=== PATIENT | female | born 1990 | race Caucasian/White ===

== ENCOUNTER 2017-01-03 00:53 | Inpatient (IN) | payer MEDICAID, OTHER ==
[2017-01-03] MEDS ORDERED: Sodium Chloride 0.9% 1,000 ML IV ONE ×2 (01:25→03:30)
[2017-01-03] MEDS ORDERED: Morphine 4 MG/ML VIAL IV STA (01:25)
--- NOTE | 2017-01-03 01:26 | C.PDOC ---
History Of Present Illness Patient present to the ER with a complaint of right leg, ankle pain. Patient states she slipped on the stairs and landed on her right leg. Denies any other trauma . No Loc.. remembers the event. Right Foot is externally rotated. - HPI Time Seen by Provider: 01/03/17 01:24 Chief Complaint (Nursing): Trauma History Per: Patient History/Exam Limitations: no limitations Onset/Duration Of Symptoms: Hrs Injury Occurred (Timing): Hours Ago: (1) Location Of Injury: Right: Ankle, Leg (lower third) Severity: Moderate Pain Scale Rating Of: 5 Recent travel outside of the [place]: No Additional History Per: Family - Fall Fall:Prior To Injury: Slipped (on stairway), Lost Balance Past Medical History Reviewed: Historical Data, Nursing Documentation, Vital Signs Vital Signs: Last Vital Signs Temp 98.4 F 01/03/17 00:59 Pulse 91 H 01/03/17 00:59 Resp 20 01/03/17 00:59 BP 121/81 01/03/17 00:59 Pulse Ox 100 01/03/17 02:22 Family History: States: No Known Family Hx - Social History Hx Alcohol Use: Yes (weekends) Hx Substance Use: No - Immunization History Hx Tetanus Toxoid Vaccination: Yes Hx Influenza Vaccination: No Hx Pneumococcal Vaccination: No Review Of Systems Constitutional: Negative for: Fever, Chills Cardiovascular: Negative for: Chest Pain Musculoskeletal: Positive for: Leg Pain (right ankle pain) Skin: Negative for: Rash, Lesions, Jaundice Neurological: Negative for: Weakness Psych: Negative for: Anxiety Physical Exam - Physical Exam Appears: Well, Non-toxic Skin: Warm, Dry Head: Atraumatic, Normacephalic Oral Mucosa: Moist Neck: Supple Cardiovascular: Rhythm Regular Respiratory: No Rales, No Rhonchi, No Wheezing Gastrointestinal/Abdominal: Soft, No Tenderness Back: Normal Inspection Extremity: Tenderness, No Pedal Edema, No Calf Tenderness, Capillary Refill ( Good ), Deformity (foot externally rotated, mid tibia pain), Other (right ankle pain) Extremity: Right: Bony Point Tenderness (mid tibia), Unable To Bear Weight Pulses: Right Femoral: Normal, Right Dorsalis Pedis: Normal Neurological/Psych: Oriented x3, Normal Speech, Normal Cognition Gait: Unable To Assess ED Course And Treatment - Laboratory Results Result Diagrams: 01/03/17 01:33 01/03/17 01:33 O2 Sat by Pulse Oximetry: 100 Pulse Ox Interpretation: Normal Progress Note: Blood work, urinalysis, HCG qualitative urine test, ankle x-ray, and lower left leg x-ray ordered. Morphine, IV fluids, and zofran Inj administered. I've reduced and splinted her right leg. pt tolerated the procedure well. good pulses and capillary refill Disposition Discussed With Dr.: Brooke Kinney Comment: accepted the pt on his service and took over the care at 3:30 AM Doctor Will See Patient In The: Hospital Counseled Patient/Family Regarding: Studies Performed, Diagnosis - Disposition Disposition: HOSPITALIZED Disposition Time: 01:25 Condition: FAIR - POA Present On Arrival: None - Clinical Impression Clinical Impression: Tibia/fibula fracture, shaft - Scribe Statement The provider has reviewed the documentation as recorded by the Scribe Alvarado Dhillon All medical record entries made by the Scribe were at my direction and personally dictated by me. I have reviewed the chart and agree that the record accurately reflects my personal performance of the history, physical exam, medical decision making, and the department course for this patient. I have also personally directed, reviewed, and agree with the discharge instructions and disposition. Decision To Admit - Pt Status Changed To: Hospital Disposition Of: Inpatient - Admit Certification Admit to Inpatient:: After my assessment, the patient will require hospitalization for at least two midnights. This is because of the severity of symptoms shown, intensity of services needed, and/or the medical risk in this patient being treated as an outpatient. - InPatient: Physician Admission Certification: I certify that this patient requires 2 or more midnights of care for the following reason:: After my assessment, the patient will require hospitalization for at least two midnights. This is because of the severity of symptoms shown, intensity of services needed, and/or the medical risk in this patient being treated as an outpatient. - . Bed Request Type: Regular Admitting Physician: Brooke Kinney Patient Diagnosis: Tibia/fibula fracture, shaft
[2017-01-03] MEDS ORDERED: Morphine 4 MG/ML VIAL ONE (01:34)
[2017-01-03] MEDS ORDERED: Sodium Chloride 0.9% 1,000 ML ONE ×2 (01:34→03:25)
[2017-01-03 01:39] LABS: BASO # 0.1 K/uL (0.0-0.2); BASO % 0.8 % (0.0-2.0); EOS # 0.3 K/uL (0.0-0.7); EOS % 2.5 % (0.0-4.0); HEMATOCRIT 42.6 % (34.0-47.0); LYMPH # 3.9 K/uL (1.0-4.3); LYMPH % 29.3 % (20.0-40.0); MEAN CELL VOLUME 87.6 fL (81.0-99.0); MEAN CORPUSCULAR HEMOGLOBIN 29.3 pg (27.0-31.0); MEAN CORPUSCULAR HGB CONC 33.5 g/dL (33.0-37.0); MEAN PLATELET VOLUME 9.1 fL (7.2-11.7); MONO # 0.7 K/uL (0.0-0.8); MONO % 5.3 % (0.0-10.0); RED CELL DISTRIBUTION WIDTH 14.1 % (11.5-14.5); WHITE BLOOD COUNT 13.2 K/uL (4.8-10.8)
[2017-01-03 01:50] LABS: CHLORIDE 97 mmol/L (98-107); POTASSIUM 3.3 mmol/L (3.6-5.2); SODIUM 135 mmol/L (132-148)
[2017-01-03 01:53] LABS: BLOOD UREA NITROGEN 8 mg/dL (7-17); CARBON DIOXIDE 23 mmol/L (22-30); GFR AFRICAN-AMERICAN > 60; GLUCOSE,RANDOM 179 mg/dL (65-105)
[2017-01-03 01:54] LABS: CALCIUM 8.7 mg/dl (8.6-10.4)
[2017-01-03] MEDS ORDERED: HYDROmorphone 1 mg/ml ISec ONE ×2 (03:24→04:24)
[2017-01-03] MEDS ORDERED: HYDROmorphone 1 mg/ml ISec IVP STA ×2 (03:30→03:46)
[2017-01-03 05:22] LABS: RBC URINE 4 /hpf (0-3); URINE BILIRUBIN NEGATIVE (NEGATIVE); URINE BLOOD NEGATIVE (NEGATIVE); URINE COLOR Yellow (YELLOW); URINE GLUCOSE (UA) NORMAL (Normal); URINE KETONE 1+ mg/dL (NEGATIVE); URINE LEUKOCYTE ESTERASE TRACE Leu/uL (Negative); URINE PROTEIN NEGATIVE (NEGATIVE); URINE UROBILINOGEN NORMAL mg/dL (0.2-1.0); WBC URINE 12 /hpf (0-5)
--- NOTE | 2017-01-03 08:13 | RAD ---
PROCEDURE: CHEST RADIOGRAPH, 1 VIEW HISTORY: fall COMPARISON: None available. FINDINGS: LUNGS: Clear. PLEURA: No pneumothorax or pleural fluid seen. CARDIOVASCULAR: Normal. OSSEOUS STRUCTURES: No significant abnormalities. VISUALIZED UPPER ABDOMEN: Normal. OTHER FINDINGS: Nipple pierced jewelry pieces - placed IMPRESSION: No active disease.
--- NOTE | 2017-01-03 08:16 | RAD ---
PROCEDURE: Radiographs of the right tibia and fibula. HISTORY: fall COMPARISON: None available. TECHNIQUE: Frontal and lateral views obtained. FINDINGS: BONES: Prox fibular shaft completed fracture -butterfly fracture fragment slightly displaced towards tibia ; minimal anterior apical angulation and butterfly fragment inferior tip posteriorly pointing Distal tibial shaft complete spiral fracture the proximal fracture fragment medially displaced ; an anterior displaced small fracture fragment JOINT SPACES: Unremarkable. OTHER FINDINGS: None. IMPRESSION: Tibial and fibular fractures
[2017-01-03] MEDS: HYDROmorphone 0.5 mg/0.5 ml ISec IVP PRN ×4 (09:26→21:16)
[2017-01-03] MEDS: Sodium Chloride 0.9% 1,000 ML IV SCH ×2 (09:31→23:06)
[2017-01-03] MEDS ORDERED: Potassium Chloride 20 mEq ER Tab PO ONE (10:00)
--- NOTE | 2017-01-03 11:04 | CP.PCM.HP ---
History of Present Illness - History of Present Illness History of Present Illness: 26F complains of right leg pain after fall on stairs in her apartment building yesterday. Pain was severe 10/10 and she was unable to walk after fall. She denies any CP/SOB/dizziness preceding fall. She denies LOC or head injury or headache. Denies numbness/tingling. No prior falls. PMH: denies PSH: denies NKDA smokes 7-8 cigs/day, smoking cessation advised, hurts bone/wound healing explained Present on Admission - Present on Admission Any Indicators Present on Admission: No Review of Systems - Review of Systems All systems: reviewed and no additional remarkable complaints except - Constitutional Constitutional: As Per HPI - EENT Additional comments: denies neck pain or headache - Cardiovascular Cardiovascular: As Per HPI - Respiratory Respiratory: As Per HPI - Gastrointestinal Additional comments: no nausea/vomiting - Musculoskeletal Musculoskeletal: As Per HPI - Integumentary Integumentary: As Per HPI - Neurological Neurological: As Per HPI - Hematologic/Lymphatic Hematologic: absent: Easy Bleeding, Easy Bruising, Lymphadenopathy, Other Past Patient History - Infectious Disease Hx of Infectious Diseases: None - Past Medical History & Family History Past Medical History?: No Past Family History: Reviewed and not pertinent - Past Social History Smoking Status: Light Smoker < 10 Cigarettes Daily - MUSCULOSKELETAL/RHEUMATOLOGICAL Hx Falls: Yes (01/03/2017 past midnight) - PSYCHIATRIC Hx Substance Use: No - SURGICAL HISTORY Hx Surgeries: No - ANESTHESIA Hx Anesthesia: No Hx Anesthesia Reactions: No Meds Allergies/Adverse Reactions: Allergies Allergy/AdvReac Type Severity Reaction Status Date / Time No Known Allergies Allergy Verified 01/03/17 01:05 Physical Exam - Constitutional Appears: Well, In Acute Distress Additional comments: mild pain - Head Exam Head Exam: ATRAUMATIC, NORMAL INSPECTION - Eye Exam Eye Exam: EOMI, Normal appearance - ENT Exam ENT Exam: Mucous Membranes Moist - Neck Exam Neck exam: Positive for: Normal Inspection Additional comments: non tender - Respiratory Exam Respiratory Exam: NORMAL BREATHING PATTERN - Cardiovascular Exam Additional comments: +DP pulse - Extremities Exam Additional comments: splint intact toes warm sensation intact left calf soft NT neg homans cap refill < 2 sec - Expanded Lower Extremities Exam Right Hip exam: full ROM Neuro vacular tendon exam: no vascular compromise - Back Exam Back exam: NORMAL INSPECTION - Neurological Exam Neurological exam: Alert, Oriented x3 - Psychiatric Exam Psychiatric exam: Normal Affect, Normal Mood - Skin Skin Exam: Dry, Intact, Normal Color, Warm Results - Vital Signs Recent Vital Signs: Last Vital Signs Temp 98.9 F 01/03/17 07:40 Pulse 93 H 01/03/17 07:40 Resp 20 01/03/17 07:40 BP 114/80 01/03/17 07:40 Pulse Ox 97 01/03/17 07:40 - Labs Result Diagrams: 01/03/17 01:33 01/03/17 01:33 Labs: Laboratory Results - last 24 hr 01/03/17 05:05 Urine Color Yellow Urine Clarity Hazy Urine pH 5.0 Ur Specific Hallam 1.023 Urine Protein Negative Urine Glucose (UA) Normal Urine Ketones 1+ H Urine Blood Negative Urine Nitrate Negative Urine Bilirubin Negative Urine Urobilinogen Normal Ur Leukocyte Esterase Trace Urine WBC (Auto) 12 H Urine RBC (Auto) 4 H Ur Squamous Epith Cells 4 Urine HCG, Qual Negative - Impressions Impression: Patient Name / ID : BERNADINE MATOS / [id number] Exam Date : 01/03/2017 02:05:00 ( Approved ) Study Comment : Sex / Age : F / 26Y Creator : Evonne Phan V. Dictator : Evonne Phan V. Medical Psychotherapist : Yardage Control Operator Forming : Evonne Phan V. Approver2 : Report Date : 01/03/2017 08:15:01 My Comment : PROCEDURE: Radiographs of the right tibia and fibula. HISTORY: fall COMPARISON: None available. TECHNIQUE: Frontal and lateral views obtained. FINDINGS: BONES: Prox fibular shaft completed fracture -butterfly fracture fragment slightly displaced towards tibia ; minimal anterior apical angulation and butterfly fragment inferior tip posteriorly pointing Distal tibial shaft complete spiral fracture the proximal fracture fragment medially displaced ; an anterior displaced small fracture fragment JOINT SPACES: Unremarkable. OTHER FINDINGS: None. IMPRESSION: Tibial and fibular fractures Accession No. : [id number] Patient Name / ID : BERNADINE MATOS / [id number] Exam Date : 01/03/2017 02:16:25 ( Approved ) Study Comment : Sex / Age : F / 26Y Creator : Evonne Phan V. Dictator : Evonne Phan V. Medical Psychotherapist : Yardage Control Operator Forming : Evonne Phan V. Approver2 : Report Date : 01/03/2017 08:12:07 My Comment : PROCEDURE: CHEST RADIOGRAPH, 1 VIEW HISTORY: fall COMPARISON: None available. FINDINGS: LUNGS: Clear. PLEURA: No pneumothorax or pleural fluid seen. CARDIOVASCULAR: Normal. OSSEOUS STRUCTURES: No significant abnormalities. VISUALIZED UPPER ABDOMEN: Normal. OTHER FINDINGS: Nipple pierced jewelry pieces - placed IMPRESSION: No active disease. Assessment & Plan (1) Closed fracture of shaft of right tibia and fibula Status: Acute Comment: for ORIF/IM nailing today. labs reviewed. imaging reviewed, midshaft right tibial fracture. NPO. T&S. d/w Dr. Brad Vieira, for OR today. elevation. ice. NWB. smoking cessation advised
[2017-01-03] MEDS ORDERED: Propofol 10 mg/ml Inj (20 ML) ONE (11:51)
[2017-01-03] MEDS ORDERED: Midazolam 2 MG/2 ML VIAL ONE (11:51)
[2017-01-03] MEDS ORDERED: Bupivacaine HCl 0.5% PF (10 ml) Inj ONE (12:13)
[2017-01-03] MEDS ORDERED: Lidocaine 1% Inj (20ml) ONE (12:14)
[2017-01-03] MEDS ORDERED: ceFAZolin IV 2 gm in Dextrose 50 ML IVPB ONE (12:14)
[2017-01-03] MEDS ORDERED: Neostigmine Methylsulfate 3mg/3ml Syringe IV ONE (14:36)
[2017-01-03] MEDS ORDERED: Bupivacaine HCl 0.25% PF (10 ml) Inj ONE ×2 (16:03)
--- NOTE | 2017-01-03 16:15 | PCM.SURG1 ---
Surgeon's Initial Post Op Note - Surgeon's Notes Surgeon: Ruth Vieira MD Teachers' Aide: Conchita Macario PA-C Type of Anesthesia: General Endo Anesthesia Administered By: Dr. Scott Pre-Operative Diagnosis: Right tibia/fibular shaft fx Operative Findings: synthes implant Post-Operative Diagnosis: same Operation Performed: Right tibial intramedullary nailing Specimen/Specimens Removed: none Estimated Blood Loss: EBL {In ML}: 100 Drains Used: No Drains Post-Op Condition: Fair Date of Surgery/Procedure: 01/03/17 Time of Surgery/Procedure: 16:14
--- NOTE | 2017-01-03 16:41 | OP ---
PROCEDURE DATE: 01/03/2017 SURGEON: Brad Vieira M.D. LIQUOR RECTIFIER: Joe Macario PA-C. PREOPERATIVE DIAGNOSIS: Displaced right tibial shaft and fibular shaft fracture. POSTOPERATIVE DIAGNOSIS: Displaced right tibial shaft and fibular shaft fracture. PROCEDURE: Right tibial shaft reduction and intramedullary nail fixation using Synthes tibial nail (9 mm nail). ANESTHESIA: General plus postoperative lower extremity block. SPECIMENS: None. COMPLICATIONS: None. ESTIMATED BLOOD LOSS: 100 mL. DISPOSITION: Stable to recovery room. INDICATIONS: This is a 26-year-old female who sustained a twisting injury at home, landing on her right lower extremity. She presented with deformity of her lower extremity and pain and swelling with inability to bear weight. Initial x-rays confirmed a displaced tibial and fibular shaft fracture. Risks and benefits of the procedure were explained to the patient and her . The risks include, but not limited to bleeding, infection, tendon, nerve or vessel injury, instability, chronic pain, potential need for additional surgery in the future, malunion, nonunion, malrotation. The patient understood the above risks and elected to undergo the procedure. Informed consent was obtained. DESCRIPTION OF PROCEDURE: The patient was brought to the operating room and placed supine on the operating room table. Prophylactic antibiotics were given. A nonsterile right thigh tourniquet was placed. The right lower extremity was then prepped and draped in standard surgical fashion. A timeout was performed. An incision was outlined over the anterior knee measuring about 5-6 cm for the entry point of the nail. Then, under fluoroscopic guidance, a closed reduction was performed over the tibia with traction and internal rotation. The reduction was held in place provisionally with percutaneous reduction clamps. Next, an incision was made over the anterior knee. Flaps were developed down to the paratenon. The paratenon was opened sharply. Then, the joint was entered medial to the patellar tendon. Starting wire was placed into the anterior knee. Starting point was midline over the tibial crest and confirmed both on AP and lateral films. After this, an opening reamer was used to open the proximal canal of the tibia. This was then followed by placement of a ball tip guidewire into the tibia, across the tibial fracture site, down to the distal tibia. This was again confirmed with fluoroscopy. Then, sequential reaming was begun starting with an 8 mm reamer and sequentially going up to a 10 mm reamer in the tibial medullary canal. After reaming the medullary canal, an appropriate length tibial nail was selected. This was a 320 x 9 mm nail. Nail was assembled on the backtable with aiming guides placed proximally. Then with light taps, the nail was seated into the tibial canal across the fracture site. Reduction was aligned both to length and anatomic rotation. Ball tip guidewire was then removed. Work was begun on locking the nail proximally. With trocars placed in lateral to medial direction over the proximal tibia, incision was made through the skin. Hemostat was used to bluntly dissect down to the lateral cortex of the tibia. Then, a drill was used to drill, the proximal hole bicortically. Then, appropriate length screw was selected and placed in the proximal static hole, locking the nail proximally. This was then repeated by a second proximal screw placement with the same technique. Again, an appropriate size screw was selected and placed across the bone and nail locking it proximally. Work was then begun on locking the nail distally. This was done with perfect lumbee technique. Distal locking hole with anterior to posterior screws was selected. Under fluoroscopy, drill was placed in an anterior to posterior direction through the bone and tibial nail. Appropriate length screw was selected and placed into the distal tibial hole. Then, another drill hole was placed in a medial to lateral position. Again, appropriate length screw was selected and then placed in the hole, locking the nail distally. Final x-rays again confirmed the well-aligned and anatomic reduction and good rotational position of the tibia. Hardware was of appropriate length. The wounds were copiously irrigated and closed with 0 followed by 2-0 Vicryl and Monocryl suture for the proximal knee wound and the rest of the wounds were closed with 2 -0 Vicryl and alesia. The patient tolerated the procedure well, was extubated and returned to recovery room where she would undergo a lower extremity block. Joe is a certified physician specimen preparation assistant who assisted me throughout the whole case. Her help was needed for proper patient positioning, protection of critical neurovascular bundles, reduction of the fracture and closure of the wound. Brad Vieira M.D. cc: [id number] TT: 01/03/2017 16:40:19 tn MTDD
--- NOTE | 2017-01-03 16:46 | RAD ---
PROCEDURE: Right tibia and fibula HISTORY: pt in PACU s/p IM nailing COMPARISON: Earlier same day TECHNIQUE: Three views FINDINGS: There is an intra medullary milena in the tibia. There is normal alignment. There is also a fracture of the proximal fibula with slight separation of a bony fragment. This is unchanged. IMPRESSION: Internal fixation tibial fracture
--- NOTE | 2017-01-03 18:55 | PCM.ANESB2 ---
Popliteal Nerve Block - Popliteal Nerve Block Date of Procedure: 01/03/17 Anesthesiologist: shemar christy Procedure Performed: Popliteal Nerve Block Right - Procedure Popliteal Nerve Block: This procedure was explained to the patient that it is for post-operative pain management. Consent was obtained after a thorough discussion with the patient regarding the benefits and possible complications of local anesthetic block of the sciatic nerve at the popliteal level. The patient was brought to the operating room and standard monitors are applied. Time-out was held with the circulating nurse to confirm the correct surgery and the appropriate block. After applying oxygen by nasal cannula and administering IV Sedation, patient's operative leg was gently raised and supported and the groove in between the biceps femoris and vastus lateralis muscles was carefully palpated. The skin approximately 8cm above the popliteal crease was then marked. The ultrasound transducer was then applied to the posterior thigh approximately 8cm above the popliteal crease in the transverse plane and the sciatic nerve before its division was visualized lateral to the popliteal artery and in between the bicep femoris and semimembranosus/semitendinosus muscles. After identification, the lateral portion of the thigh was prepped with Betadine solution three times and Lidocaine 1% was injected subcutaneously for topical anesthesia. At this point, a # 21 gauge Stimuplex insulated 4 inch needle was inserted into pre-marked area and advanced in a perpendicular direction. The needle was inserted above the ultrasound transducer in-plane towards the sciatic nerve in a [id number] direction. Needle advancement was performed carefully under direct ultrasound visualization. After repeated negative aspiration, ____5_cc of _0.25_ % ___bupivicaine__was injected and this was flowed with 15_ cc of __0.25_ % ___bupivicaine__. Under ultrasound guidance the local anesthetics were observed tenting the epidural sheath and surrounding the roots of the sciatic nerve. The needle was removed intact and sterile dressing was applied. The patient tolerated the popliteal nerve block well with stable vital signs and no complaints, paresthesias, or pain.
[2017-01-03] MEDS: ceFAZolin IV 2 gm in Dextrose 50 ML IVPB SCH (18:56)
[2017-01-03] MEDS: Oxycodone/Acetaminophen 5/325 mg Tab PO PRN (23:30)
[2017-01-04] MEDS: ceFAZolin IV 2 gm in Dextrose 50 ML IVPB SCH (01:08)
[2017-01-04] MEDS: HYDROmorphone 0.5 mg/0.5 ml ISec IVP PRN ×4 (02:28→22:44)
[2017-01-04] MEDS: Sodium Chloride 0.9% 1,000 ML IV SCH (05:56)
[2017-01-04] MEDS: Oxycodone/Acetaminophen 5/325 mg Tab PO PRN ×3 (05:58→20:11)
[2017-01-04 06:13] LABS: HEMATOCRIT 35.9 % (34.0-47.0); MEAN CELL VOLUME 87.6 fL (81.0-99.0); MEAN CORPUSCULAR HEMOGLOBIN 29.4 pg (27.0-31.0); MEAN CORPUSCULAR HGB CONC 33.6 g/dL (33.0-37.0); MEAN PLATELET VOLUME 9.7 fL (7.2-11.7); RED CELL DISTRIBUTION WIDTH 13.8 % (11.5-14.5); WHITE BLOOD COUNT 9.6 K/uL (4.8-10.8)
[2017-01-04 06:20] LABS: CHLORIDE 100 mmol/L (98-107); POTASSIUM 3.6 mmol/L (3.6-5.2); SODIUM 136 mmol/L (132-148)
[2017-01-04 06:22] LABS: GFR AFRICAN-AMERICAN > 60
[2017-01-04 06:23] LABS: BLOOD UREA NITROGEN 5 mg/dL (7-17); CALCIUM 8.2 mg/dl (8.6-10.4); CARBON DIOXIDE 23 mmol/L (22-30); GLUCOSE,RANDOM 199 mg/dL (65-105)
[2017-01-04] MEDS: Aspirin 325 mg EC Tablets PO SCH ×2 (09:32→18:22)
--- NOTE | 2017-01-04 09:55 | CP.PCM.PN ---
Subjective - Date & Time of Evaluation Date of Evaluation: 01/04/17 Time of Evaluation: 09:49 - Subjective Subjective: Patient states pain has been controlled overnight, but now dilaudid isn't strong enough. Denies CP/SOB/dizziness. Denies numbnes//tingling. Urinating frequently. Good appetite, no nausea/vomiting Objective - Vital Signs/Intake and Output Vital Signs (last 24 hours): Temp Pulse Resp BP Pulse Ox 98.7 F 73 20 99/64 L 99 01/04/17 07:00 01/04/17 07:00 01/04/17 07:00 01/04/17 07:00 01/04/17 07:00 Intake and Output: 01/04/17 01/04/17 06:59 18:59 Intake Total 940 Output Total 500 Balance 440 - Medications Medications: Current Medications Acetaminophen (Tylenol 325mg Tab) 650 mg PO Q4 PRN PRN Reason: Fever 101 degrees fahrenheit Aspirin (Ecotrin) 325 mg PO BID FOR[facility]LY [facility], [facility]1983 Last Admin: 01/04/17 09:32 Dose: 325 mg Docusate Sodium (Colace) 100 mg PO BID [facility], [facility]1983 Last Admin: 01/04/17 09:32 Dose: 100 mg Hydromorphone HCl (Dilaudid) 0.5 mg IVP Q4H PRN PRN Reason: Pain, moderate (4-7) Last Admin: 01/04/17 09:44 Dose: 0.5 mg Sodium Chloride (Sodium Chloride 0.9%) 1,000 mls @ 80 mls/hr IV .[id number] FOR[facility], [facility]–1983 Last Admin: 01/04/17 05:56 Dose: 80 mls/hr Ondansetron HCl (Zofran Inj) 4 mg IVP Q6H PRN PRN Reason: Nausea/Vomiting Oxycodone/Acetaminophen (Percocet 5/325 Mg Tab) 2 tab PO Q4H PRN PRN Reason: Pain, Mild (1-3) Stop: 01/06/17 09:10 Last Admin: 01/04/17 05:58 Dose: 2 tab - Labs Labs: 01/04/17 06:02 01/04/17 06:02 PT 11.5 SECONDS (9.7-12.2) 01/03/17 01:33 INR 1.0 03/16/17 01:33 APTT 33 SECONDS (21-34) 01/03/17 01:33 - Constitutional Appears: Well, No Acute Distress - Extremities Exam Additional comments: sensation intact to SP/DP/sural/med/lat plantar toes pink warm cap refill < 2 sec - Neurological Exam Neuro motor strength exam: Right Lower Extremity: 5 (+flex/ext toes) Assessment and Plan (1) Closed fracture of shaft of right tibia and fibula Assessment & Plan: POD#1 s/p right tibia IM nailing -no evidence of compartment syndrome -VTE proph with aspiring per Dr. Vieira -PT/OT today -d/c planning home after patient clears PT, she has 3 flights of stairs to her home -elevate -ice -f/u PT progress -Dw/ Dr. Vieira, agrees with above -drop in h/h expected for tibia fracture Status: Acute Review of Systems - Review of Systems Constitutional: no symptoms reported Respiratory: No Resp. distress Cardiology: no symptoms reported, see HPI Gastrointestinal/Abdominal: no symptoms reported, see HPI Musculoskeletal: see HPI Skin: no symptoms reported Neurological: no symptoms reported, see HPI All Other Systems: Reviewed and Negative
--- NOTE | 2017-01-04 15:50 | RAD ---
PROCEDURE: Intraoperative Fluoroscopy. HISTORY: Right tibia and fibula fractures FINDINGS: Fluoroscopic assistance was provided for open reduction and internal fixation right tibial fracture. Proximal fibular fracture also noted.
[2017-01-05] MEDS: Oxycodone/Acetaminophen 5/325 mg Tab PO PRN ×5 (01:15→23:48)
[2017-01-05] MEDS: HYDROmorphone 0.5 mg/0.5 ml ISec IVP PRN ×4 (05:12→20:58)
[2017-01-05] MEDS: Aspirin 325 mg EC Tablets PO SCH ×2 (10:17→18:44)
[2017-01-06 00:16] VITALS: RESP 20
[2017-01-06] MEDS: HYDROmorphone 0.5 mg/0.5 ml ISec IVP PRN ×3 (04:11→17:20)
[2017-01-06] MEDS: Oxycodone/Acetaminophen 5/325 mg Tab PO PRN (06:46)
[2017-01-06] MEDS: Aspirin 325 mg EC Tablets PO SCH (09:45)
[2017-01-06] MEDS ORDERED: Oxycodone/Acetaminophen 5/325 mg Tab PO ONE (14:00)
[2017-01-06 17:40] VITALS: BP 116/84; PULSE 86; TEMP 98.4; O2SAT 99
== END 2017-01-06 17:51 | disposition home or self-care (01) | DRG 494 ==
LOC: C.ER 00:53 → C.6T 03:45
PROVIDERS: ADMIT Orthopaedic Surgery; ATTEND Orthopaedic Surgery
PROC: 0QSG06Z Reposition Right Tibia with Intramedullary Internal Fixation Device, Open Approach (ICD-10-PCS; principal; 2017-01-03 11:15)
DX: S82.291A Other fracture of shaft of right tibia, initial encounter for closed fracture (principal); F17.200 Nicotine dependence, unspecified, uncomplicated; S82.491A Other fracture of shaft of right fibula, initial encounter for closed fracture; W10.9XXA Fall (on) (from) unspecified stairs and steps, initial encounter; Y92.039 Unspecified place in apartment as the place of occurrence of the external cause

== ENCOUNTER 2017-01-31 13:57 | Emergency (ER) | payer MEDICAID, OTHER ==
[2017-01-31 14:01] VITALS: BP 125/79; PULSE 77; TEMP 98; O2SAT 99
[2017-01-31] MEDS ORDERED: Oxycodone/Acetaminophen 5/325 mg Tab PO STA (14:32)
[2017-01-31] MEDS ORDERED: Oxycodone/Acetaminophen 5/325 mg Tab ONE (14:37)
--- NOTE | 2017-01-31 14:48 | C.PDOC ---
History Of Present Illness 26 year old female with a Right tib/fib fracture on 01/02/17 and surgery on , presents to the ED to get an X-Ray. Patient notes having excess pain on the right leg and needs medication for pain. Patient denies vomiting, nausea, fever , chills, dizziness, numbness of the right leg, or any other complaints. (Manisha Mason) History Per: Patient History/Exam Limitations: no limitations Onset/Duration Of Symptoms: Days Current Symptoms Are (Timing): Still Present Severity: Mild Time Seen by Provider: 01/31/17 13:58 Chief Complaint (Nursing): Lower Extremity Problem/Injury Past Medical History Reviewed: Historical Data, Nursing Documentation, Vital Signs Family History: States: Unknown Family Hx - Social History Hx Alcohol Use: No Hx Substance Use: No - Immunization History Hx Tetanus Toxoid Vaccination: Yes Hx Influenza Vaccination: No Hx Pneumococcal Vaccination: No Vital Signs: Last Vital Signs Temp 98 F 01/31/17 13:59 Pulse 77 01/31/17 13:59 Resp 20 01/31/17 15:09 BP 125/79 01/31/17 13:59 Pulse Ox 99 01/31/17 16:22 - [facility] Procedures REPOSITION RIGHT TIBIA WITH INTRAMED FIX, OPEN APPROACH (01/03/17) Review Of Systems Except As Marked, All Systems Reviewed And Found Negative. Constitutional: Negative for: Fever, Chills Gastrointestinal: Negative for: Nausea, Vomiting Musculoskeletal: Positive for: Leg Pain (Right leg) Neurological: Negative for: Numbness, Dizziness Physical Exam - Physical Exam Appears: Non-toxic, No Acute Distress Skin: Warm, Dry Head: Atraumatic, Normacephalic Eye(s): bilateral: Normal Inspection Oral Mucosa: Moist Extremity: Capillary Refill (+ 2), Other (No cellutitis. Foot and toes normal exam) Neurological/Psych: Oriented x3, Normal Speech, Normal Motor, Normal Sensation Gait: Steady ED Course And Treatment O2 Sat by Pulse Oximetry: 99 (Room air) Pulse Ox Interpretation: Normal Medical Decision Making Medical Decision Making: Plans: -oxyCODONE -X-Ray of Tib/Fib left -Reassess and disposition Splint in place over Tib/Fib. (Manisha Mason) Disposition - Disposition Disposition Time: 14:56 - Disposition Referrals: Brad Vieira MD [Staff Provider] - Disposition: HOME/ ROUTINE Condition: GOOD Additional Instructions: Follow up with Dr. Salinas as scheduled without fail. Prescriptions: oxyCODONE/Acetaminophen [Percocet 5/325 mg Tab] 1 tab PO QID PRN #15 tab PRN Reason: Pain Instructions: Leg Fracture (ED) - Clinical Impression Clinical Impression: Tibia/fibula fracture, shaft - Scribe Statement The provider has reviewed the documentation as recorded by the Scribe - Scribe Statement Kasi posey All medical record entries made by the Scribe were at my direction and personally dictated by me. I have reviewed the chart and agree that the record accurately reflects my personal performance of the history, physical exam, medical decision making, and the department course for this patient. I have also personally directed, reviewed, and agree with the discharge instructions and disposition. (Manisha Mason)
[2017-01-31 15:10] VITALS: RESP 20
--- NOTE | 2017-01-31 16:39 | RAD ---
PROCEDURE: Radiographs of the right tibia and fibula. HISTORY: s/p tib/fib fx and surgery COMPARISON: Right tibia fibula x-ray performed 01/03/17 TECHNIQUE: Frontal and lateral views obtained. FINDINGS: Images are obtained through a cast which obscures osseous detail. Metallic milena and screw fixation of the tibia. Distal tibial fracture noted with mild increased interval healing. Displaced fracture deformity of the proximal 3rd fibula without significant interval change. IMPRESSION: Metallic milena and screw fixation of tibial fracture which demonstrates mild increased interval healing. Proximal 1/3rd fibular fracture re-identified without significant interval change.
== END 2017-01-31 15:09 | disposition home or self-care (01) ==
LOC: C.ER 13:57
DX: S82.201D Unspecified fracture of shaft of right tibia, subsequent encounter for closed fracture with routine healing (principal); S82.401D Unspecified fracture of shaft of right fibula, subsequent encounter for closed fracture with routine healing; X58.XXXD Exposure to other specified factors, subsequent encounter

== ENCOUNTER 2017-04-07 22:01 | Emergency (ER) | payer MEDICAID ==
[2017-04-07 22:29] VITALS: BP 116/76; PULSE 90; TEMP 98.6; O2SAT 98
--- NOTE | 2017-04-07 22:56 | C.PDOC ---
History Of Present Illness 26 y/o female c/o itchy rash to arms, chest, abdomen, back and upper thighs that started after eating crabs on March 28. pt was seen in another ED at that time and given a course of steroids, famotidine and benadryl. pt sts symptoms got better while taking steroids, but have worsened again. pt has not eaten any more seafood. pt denies any new body lotion, soaps and detergents. no difficulty breathing or swallowing. no swelling to lips, mouth or tongue. no fevers. Time Seen by Provider: 04/07/17 22:43 Chief Complaint (Nursing): Abnormal Skin Integrity History Per: Patient History/Exam Limitations: no limitations Onset/Duration Of Symptoms: Days (11) Current Symptoms Are (Timing): Worse Quality Of Symptoms: Itching Past Medical History Reviewed: Historical Data, Nursing Documentation, Vital Signs Vital Signs: Last Vital Signs Temp 98.6 F 04/07/17 22:20 Pulse 90 04/07/17 22:20 Resp 16 04/07/17 22:20 BP 116/76 04/07/17 22:20 Pulse Ox 98 04/07/17 23:19 - Medical History PMH: No Chronic Diseases Surgical History: No Surg Hx - [facility] Procedures REPOSITION RIGHT TIBIA WITH INTRAMED FIX, OPEN APPROACH (01/03/17) Family History: States: Unknown Family Hx - Social History Hx Tobacco Use: Yes Hx Alcohol Use: Yes Hx Substance Use: No - Immunization History Hx Tetanus Toxoid Vaccination: Yes Hx Influenza Vaccination: No Hx Pneumococcal Vaccination: No Review Of Systems Constitutional: Negative for: Fever, Chills Cardiovascular: Negative for: Chest Pain, Palpitations Skin: Positive for: Rash, Lesions (diffues to armsl chest and back) Neurological: Negative for: Weakness, Numbness Physical Exam - Physical Exam Appears: Non-toxic, No Acute Distress Skin: Normal Color, Warm, Dry, Rash (diffuse skin color papules, often coalesced to anterior chest wall, back, abdomen, bilateral arms. no erythema or warmth. no swelling. few areas of small patches of scaly/flaky skin on left arm.) Nose: Normal Oral Mucosa: Moist Tongue: Normal Appearing, No Swelling Lips: Normal Appearing, No Swelling Throat: Normal, No Erythema, No Exudate Neck: Normal Cardiovascular: Rhythm Regular, No Murmur Respiratory: Normal Breath Sounds, No Rales, No Rhonchi, No Stridor, No Wheezing Neurological/Psych: Oriented x3, Normal Speech, Normal Cognition ED Course And Treatment O2 Sat by Pulse Oximetry: 98 Disposition Counseled Patient/Family Regarding: Diagnosis, Need For Followup, Rx Given - Disposition Referrals: [facility] [Outside] [facility] [Outside] Disposition: HOME/ ROUTINE Disposition Time: 23:14 Condition: STABLE Additional Instructions: Take medications as prescribed. Benadryl may make you sleepy- no driving or operating machinery. Call clinic to make a close follow up appointment with possible referral to dermatology. Return to ER for any worsening symptoms. Prescriptions: DiphenhydrAMINE [Benadryl] 25 mg PO Q6 #30 cap Famotidine [Pepcid] 20 mg PO DAILY #14 tab Hydrocortisone 2.5% 1 applic TOP DAILY #1 tub predniSONE [predniSONE Tab] 40 mg PO DAILY #10 tab Instructions: Urticaria (ED) Forms: General Discharge Instructions - Clinical Impression Clinical Impression: Urticaria
[2017-04-07 23:29] VITALS: RESP 20
== END 2017-04-07 23:28 | disposition home or self-care (01) ==
LOC: C.ER 22:01
DX: L50.9 Urticaria, unspecified (principal)

== ENCOUNTER 2017-12-10 18:21 | Emergency (ER) | payer MEDICAID ==
[2017-12-10 19:05] VITALS: BMI 32.9
[2017-12-10 19:13] VITALS: TEMP 99.6
[2017-12-10] MEDS ORDERED: Sodium Chloride 0.9% 1,000 ML IV ONE (20:24)
[2017-12-10] MEDS ORDERED: Sodium Chloride 0.9% 1,000 ML ONE (20:41)
--- NOTE | 2017-12-10 21:17 | C.PDOC ---
History Of Present Illness 27 yr old female presents to the ER for flu like symptoms, weakness and cough for the past few days. Patient reports of sick contact. Denies flu shot this year, did not take any medication. Patient denies fever, chills, chest pain, SOB , nausea, vomiting, abdominal pain or headache. Time Seen by Provider: 12/10/17 19:35 Chief Complaint (Nursing): Flu-like Symptoms History Per: Patient History/Exam Limitations: no limitations Onset/Duration Of Symptoms: Days (few days) Past Medical History Reviewed: Historical Data, Nursing Documentation, Vital Signs Vital Signs: Last Vital Signs Temp 99.6 F 12/10/17 21:48 Pulse 96 H 12/10/17 21:48 Resp 20 12/10/17 21:48 BP 102/69 12/10/17 21:48 Pulse Ox 96 12/10/17 21:48 - [facility] Procedures REPOSITION RIGHT TIBIA WITH INTRAMED FIX, OPEN APPROACH (01/03/17) Family History: States: No Known Family Hx - Social History Hx Tobacco Use: Yes Hx Alcohol Use: Yes Hx Substance Use: No - Immunization History Hx Tetanus Toxoid Vaccination: Yes Hx Influenza Vaccination: No Hx Pneumococcal Vaccination: No Review Of Systems Except As Marked, All Systems Reviewed And Found Negative. Constitutional: Positive for: Weakness. Negative for: Fever, Chills Cardiovascular: Negative for: Chest Pain Respiratory: Positive for: Cough. Negative for: Shortness of Breath Gastrointestinal: Negative for: Nausea, Vomiting, Abdominal Pain Neurological: Negative for: Headache Physical Exam - Physical Exam Appears: Non-toxic, No Acute Distress Skin: Warm, Dry Eye(s): bilateral: Normal Inspection, PERRL, EOMI Oral Mucosa: Dry Cardiovascular: Rhythm Regular, No Murmur Respiratory: Rhonchi (mild rhonci at the bases, bilaterlly), No Wheezing Gastrointestinal/Abdominal: Normal Exam, Soft, No Tenderness, No Guarding, No Rebound Neurological/Psych: Oriented x3, Normal Speech ED Course And Treatment O2 Sat by Pulse Oximetry: 95 (RA) Pulse Ox Interpretation: Normal Medical Decision Making Medical Decision Making: PLAN: * CXR * Toradol IVP * Sodium Chloride IV Disposition - Disposition Referrals: Tabitha Cooper, [Non-Staff] - Disposition: HOME/ ROUTINE Disposition Time: 21:25 Condition: IMPROVED Additional Instructions: Thank you for letting us take care of you today. The emergency medical care you received today was directed at your acute symptoms. If you were prescribed any medication, please fill it and take as directed. It may take several days for your symptoms to resolve. Return to the Emergency Department if your symptoms worsen, do not improve, or if you have any other problems. Please contact your doctor or call one of the physicians/clinics you have been referred to that are listed on the Patient Visit Information form that is included in your discharge packet. Bring any paperwork you were given at discharge with you along with any medications you are taking to your follow up visit. Our treatment cannot replace ongoing medical care by a primary care provider (PCP) outside of the emergency department. Thank you for allowing the [facility] team to be part of your care today. Follow up with your doctor this week for re-evaluation and further management. Prescriptions: Ibuprofen [Motrin] 600 mg PO Q6 PRN #20 tab PRN Reason: Pain, Moderate (4-7) levoFLOXacin [Levaquin] 750 mg PO DAILY #5 tab Oseltamivir Phosphate [Tamiflu] 75 mg PO BID #10 capsule Instructions: Community-Acquired Pneumonia in Adults Forms: Work Excuse - Clinical Impression Clinical Impression: Influenza-like illness, Community acquired pneumonia - Scribe Statement The provider has reviewed the documentation as recorded by the Marcial Jones Provider Attestation: All medical record entries made by the Marcial were at my direction and personally dictated by me. I have reviewed the chart and agree that the record accurately reflects my personal performance of the history, physical exam, medical decision making, and the department course for this patient. I have also personally directed, reviewed, and agree with the discharge instructions and disposition.
[2017-12-10 22:07] VITALS: BP 102/69; PULSE 96; RESP 20
[2017-12-11 01:00] VITALS: O2SAT 95
--- NOTE | 2017-12-11 10:20 | RAD ---
HISTORY: r/o infiltrate COMPARISON: Chest x-ray performed 01/03/17 TECHNIQUE: Chest PA and lateral FINDINGS: Examination limited by habitus. LUNGS: Patchy opacity within the medial right lower lobe consistent with pneumonia. Please note that chest x-ray has limited sensitivity for the detection of pulmonary masses. PLEURA: No significant pleural effusion identified. No definite pneumothorax . CARDIOVASCULAR: The cardiomediastinal silhouette appears within normal limits of size. OSSEOUS STRUCTURES: No acute osseous abnormality identified. VISUALIZED UPPER ABDOMEN: Unremarkable. OTHER FINDINGS: Bilateral nipple rings. IMPRESSION: Patchy opacity within the medial right lower lobe consistent with pneumonia. Study marked for PA review.
== END 2017-12-10 22:07 | disposition home or self-care (01) ==
LOC: SUPCPDRO 18:21 → C.ER 18:21
DX: J11.00 Influenza due to unidentified influenza virus with unspecified type of pneumonia (principal); F17.210 Nicotine dependence, cigarettes, uncomplicated
CPT/HCPCS: 71046; 96361; 96374; 99284; J1885; J7040

== ENCOUNTER 2019-02-08 16:02 | Emergency (ER) | payer MEDICAID ==
[2019-02-08 16:33] VITALS: RESP 16; O2SAT 99; BMI 36.2
--- NOTE | 2019-02-08 16:59 | C.PDOC ---
History Of Present Illness 28 year old female presents to ED with complaint of body aches, sore throat, cough, and headache for the past 2 days. Patient states that she has also been experiencing vomiting and diarrhea. Patient states that in 2017 she injured her leg and was seen at [facility] for it . Patient denies SOB, chest pain, and wheezing. Time Seen by Provider: 02/08/19 16:30 Chief Complaint (Nursing): Flu-like Symptoms History Per: Patient History/Exam Limitations: no limitations Onset/Duration Of Symptoms: Days (2) Current Symptoms Are (Timing): Still Present Location Of Pain: Throat, Diffuse Myalgias, Headache Associated Symptoms: Sore Throat, Cough, Myalgias, Vomiting, Diarrhea Past Medical History Reviewed: Historical Data, Nursing Documentation, Vital Signs Vital Signs: Last Vital Signs Temp 98.1 F 02/08/19 16:21 Pulse 86 02/08/19 16:21 Resp 16 02/08/19 16:21 BP 125/81 02/08/19 16:21 Pulse Ox 99 02/08/19 16:21 - Medical History PMH: No Chronic Diseases - [facility] Procedures REPOSITION RIGHT TIBIA WITH INTRAMED FIX, OPEN APPROACH (01/03/17) Family History: States: Unknown Family Hx - Social History Hx Tobacco Use: Yes Hx Alcohol Use: Yes Hx Substance Use: No - Immunization History Hx Tetanus Toxoid Vaccination: Yes Hx Influenza Vaccination: No Hx Pneumococcal Vaccination: No Review Of Systems Constitutional: Positive for: Malaise. Negative for: Fever, Chills, Weakness ENT: Positive for: Throat Pain Cardiovascular: Negative for: Chest Pain Respiratory: Positive for: Cough. Negative for: Shortness of Breath, Wheezing Gastrointestinal: Positive for: Vomiting, Diarrhea. Negative for: Abdominal Pain Neurological: Positive for: Headache Physical Exam - Physical Exam Appears: Well, Non-toxic, No Acute Distress Skin: Normal Color, Warm, Dry Head: Atraumatic, Normacephalic Ear(s): Bilateral: Normal Nose: Normal Oral Mucosa: Moist Throat: Normal, No Erythema, No Exudate Neck: Normal ROM, Supple Chest: Symmetrical, No Deformity Cardiovascular: Rhythm Regular, No Murmur Respiratory: No Accessory Muscle Use, No Rales, No Rhonchi, No Wheezing Gastrointestinal/Abdominal: Soft, No Tenderness Extremity: Capillary Refill (<2 seconds) Neurological/Psych: Oriented x3, Normal Speech, Normal Cognition ED Course And Treatment O2 Sat by Pulse Oximetry: 99 (in RA) Pulse Ox Interpretation: Normal Medical Decision Making Medical Decision Making: Plan: Claratin PO Prednisone PO Disposition - Disposition Referrals: [facility] [Outside] Disposition: HOME/ ROUTINE Disposition Time: 17:52 Condition: GOOD Additional Instructions: Follow up with the medical doctor within 1-2 days. Return if worsened. Prescriptions: Ibuprofen [Motrin] 1 tab PO TID PRN #30 tab PRN Reason: Pain Loratadine/Pseudoephedrine [Loratadine-D 24Hr Tablet] 1 each PO DAILY #10 tab.er.24h predniSONE [Prednisone] 20 mg PO BID #10 tab Instructions: Viral Pharyngitis Forms: [employer] ([place]) - Clinical Impression Clinical Impression: Viral illness - PA / PRODUCT DEVELOPMENT CONSULTANT / Resident Statement MD/DO has reviewed & agrees with the documentation as recorded. (Lisa Whitfield) - Scribe Statement The provider has reviewed the documentation as recorded by the Scribe (Lisa Whitfield) All medical record entries made by the Scribe were at my direction and personally dictated by me. I have reviewed the chart and agree that the record accurately reflects my personal performance of the history, physical exam, medical decision making, and the department course for this patient. I have also personally directed, reviewed, and agree with the discharge instructions and disposition.
[2019-02-08 18:08] VITALS: BP 121/81; PULSE 65; TEMP 98.5
== END 2019-02-08 18:02 | disposition home or self-care (01) ==
LOC: C.ER 16:02
DX: B34.9 Viral infection, unspecified (principal)

== ENCOUNTER 2019-02-23 22:42 | Emergency (ER) | payer MEDICAID ==
[2019-02-23 22:43] VITALS: BMI 32.9
[2019-02-23 22:59] VITALS: BP 148/93; PULSE 109; RESP 20; TEMP 97.7; O2SAT 96
--- NOTE | 2019-02-23 23:20 | C.PDOC ---
History Of Present Illness 28 year old female presents to the ED c/o swelling and irritation to her vaginal area for the past week. Patient reports she initially felt itching in the area after using a drop off laundry service. Patient think she might be allergic to the detergent used at the place. Patient reports symptoms have been intermittent over the past week. Patient developed UTI symptoms as well for which she was prescribed antibiotics. However patient reporta area has become more swollen and painful which prompted the visit. Patient denies fever, chills, nausea, vomit, diarrhea, back pain, vaginal bleeding, vaginal discharge. Time Seen by Provider: 02/23/19 23:04 Chief Complaint (Nursing): Allergic Reaction History Per: Patient History/Exam Limitations: no limitations Onset/Duration Of Symptoms: Days (week), Intermittent Episodes Current Symptoms Are (Timing): Still Present Possible Cause: Other Associated Symptoms: Skin Rash, Swelling, Itching Recent travel outside of the [place]: No Additional History Per: Patient Past Medical History Reviewed: Historical Data, Nursing Documentation, Vital Signs Vital Signs: Last Vital Signs Temp 97.7 F 02/23/19 22:51 Pulse 109 H 02/23/19 22:51 Resp 20 02/23/19 22:51 BP 148/93 H 02/23/19 22:51 Pulse Ox 96 02/23/19 22:51 Primary Care Provider: Non [facility] Provider, - Medical History PMH: No Chronic Diseases Surgical History: No Surg Hx - [facility] Procedures REPOSITION RIGHT TIBIA WITH INTRAMED FIX, OPEN APPROACH (01/03/17) Family History: States: Unknown Family Hx - Social History Hx Tobacco Use: Yes Hx Alcohol Use: Yes Hx Substance Use: No - Immunization History Hx Tetanus Toxoid Vaccination: Yes Hx Influenza Vaccination: No Hx Pneumococcal Vaccination: No Review Of Systems Constitutional: Negative for: Fever, Chills Gastrointestinal: Negative for: Nausea, Vomiting, Abdominal Pain Genitourinary: Positive for: Pelvic Pain, Rash. Negative for: Vaginal Discharge, Vaginal Bleeding Musculoskeletal: Negative for: Back Pain Skin: Negative for: Rash Neurological: Negative for: Weakness, Numbness Physical Exam - Physical Exam Appears: Non-toxic, No Acute Distress Skin: Normal Color, Warm, Dry Head: Atraumatic, Normacephalic Eye(s): bilateral: Normal Inspection Neck: Normal ROM, Supple Pelvic: No Adnexal Tenderness, No Mass, Other (diffuse scattared vesicles on labia, near mons pubis area. Swelling of bilateral labia with irritation. Vaginal vault with vesicles and irritation as well. No open lesions) Extremity: Normal ROM Neurological/Psych: Oriented x3, Normal Speech, Normal Cognition Gait: Steady ED Course And Treatment O2 Sat by Pulse Oximetry: 96 (ON RA) Pulse Ox Interpretation: Normal Progress Note: Patient was educated on safe sex, use of protection. Patient advised to keep area clean, given prescription for antibiotics. Patient strongly advised to follow up [facility] SW[facility] OPERATOR. Disposition Counseled Patient/Family Regarding: Diagnosis, Need For Followup, Rx Given - Disposition Referrals: [facility] [Outside] Disposition: HOME/ ROUTINE Disposition Time: 23:18 Condition: STABLE Additional Instructions: Please wear comfortable clothing and underwear Follow up with TOWER SWITCH OPERATOR doctor Take medications as directed Return to ER if worse Prescriptions: Fluconazole [Diflucan] 150 mg PO ONCE #1 tab Ibuprofen [Motrin Tab] 800 mg PO QID #24 tab Valacyclovir HCl [Valtrex] 1 gm PO BID #20 tablet Instructions: Genital Herpes (DC) Forms: [employer] ([place] Citizen) - Clinical Impression Clinical Impression: Genital herpes, Candidiasis of genitalia in female - PA / VALVE AND REGULATOR REPAIRER / Resident Statement MD/DO has reviewed & agrees with the documentation as recorded. - Scribe Statement The provider has reviewed the documentation as recorded by the Scribe Beka Rushing All medical record entries made by the Katlynibjennyfer were at my direction and personally dictated by me. I have reviewed the chart and agree that the record accurately reflects my personal performance of the history, physical exam, medical decision making, and the department course for this patient. I have also personally directed, reviewed, and agree with the discharge instructions and disposition.
== END 2019-02-23 23:28 | disposition home or self-care (01) ==
LOC: C.ER 22:42
DX: B37.3 Candidiasis of vulva and vagina (principal); A60.00 Herpesviral infection of urogenital system, unspecified